=== PATIENT | female | born 1945 ===

== ENCOUNTER 2023-04-22 08:00 | Inpatient (IN) | payer MEDICARE ==
[~2023-04-22] VITALS: Wt 67.6 kg
[~2023-04-22 08:00] MED LIST: ANASTROZOLE1 M1 PO; CALCIUM500 M1 PO; CENTRUM COMPLE1 EACH PO; GABAPENTIN100 M2 PO; LISINOPRIL40 MG PO; METOPROLOL TART50 M1 PO; PROVENTIL HFA6.7 GM INH; SEPTDS PO; TRELEGY ELLIPT1 EACH INH; VITAMIN D350 MCG PO
[2023-04-22 08:05] VITALS: BP 126/65
[2023-04-22 08:37] LABS: BASO % 0.3 % (0.0-1.0); EOS # 0.2 10*3/uL (0.0-0.4); HEMATOCRIT 45.4 % (37.0-47.0); LYMPH % 12.5 % (27.0-41.0); MEAN CORPUSCULAR HGB 30.5 pg (27.0-31.0); MEAN CORPUSCULAR HGB CONC 32.8 g/dl (33.0-37.0); MEAN PLATELET VOLUME 9.8 fl (9.6-12.3); MONO % 12.9 % (3.0-9.0); NEUT # 5.4 10*3/uL (2.3-7.9); NEUT % 71.9 % (47.0-73.0); PLATELET COUNT AUTOMATED 226 10*3/uL (130-400); RED BLOOD COUNT 4.88 10*6/uL (4.10-5.10); RED CELL DISTRI WIDTH 12.9 % (0-14.5); WHITE BLOOD COUNT 7.6 10*3/uL (4.8-10.8)
[2023-04-22 08:47] LABS: ACT PARTIAL THROMBO TIME 33.8 SECONDS (20.0-32.1)
[2023-04-22] MEDS ORDERED: [UNRECOGNIZED DRUG - REMARK] (08:49)
[2023-04-22] MEDS ORDERED: CERTAVITE-ANTI1 EACH PO (08:49)
[2023-04-22] MEDS ORDERED: CALCIUM500 M1 PO (08:49)
[2023-04-22] MEDS ORDERED: PREGABALIN100 MG PO (08:50)
[2023-04-22] MEDS ORDERED: LISINOPRIL40 MG PO (08:50)
[2023-04-22] MEDS ORDERED: PREGABALIN50 MG PO (08:51)
[2023-04-22] MEDS ORDERED: TRELEGY ELLIPT1 EACH INH (08:52)
[2023-04-22] MEDS ORDERED: VITAMIN D350 MC2 PO (08:52)
[2023-04-22] MEDS ORDERED: VENT7GM INH (08:53)
[2023-04-22 09:00] LABS: ALKALINE PHOSPHATASE 109 U/L (46-116); BUN 12 mg/dl (9-23); CHLORIDE 102 mmol/L (98-107); POTASSIUM 4.2 mmol/L (3.4-5.1); SGPT/ALT 20 U/L (5-49); TOTAL PROTEIN 6.9 gm/dL (6.0-8.0)
[2023-04-22 10:15] VITALS: BP 151/89
[2023-04-22 12:03] VITALS: BP 150/84
[2023-04-22 13:40] LABS: BILIRUBIN Negative (Negative); BLOOD Negative (Negative); CLARITY Clear (Clear); COLOR Yellow (Yellow); GLUCOSE Negative (Negative); KETONE Negative (Negative); LEUKO ESTERASE 1+ (Negative); NITRITE Negative (Negative); PH 5.5 (4.5-8.0); SPECIFIC GRAVITY 1.025 (1.001-1.030)
[2023-04-22 13:59] LABS: BACTERIA 1+
[2023-04-22 14:04] VITALS: BP 119/72
[2023-04-22] MEDS ORDERED: ASPIRIN CHILDRE81 MG PO (16:06)
[2023-04-22] MEDS ORDERED: ATORVASTATIN CA40 M1 PO (16:06)
== END 2023-04-22 16:15 | DRG 69 ==
LOC: ED 08:00 → EDHOLD 10:15
PROVIDERS: Emergency Medicine; Student in an Organized Health Care Education/Training Program; ADMIT Internal Medicine; ATTEND Internal Medicine
DX: G45.9 Transient cerebral ischemic attack, unspecified (principal); N30.00 Acute cystitis without hematuria; J44.9 Chronic obstructive pulmonary disease, unspecified; I10 Essential (primary) hypertension; Z66 Do not resuscitate; G62.9 Polyneuropathy, unspecified; M32.9 Systemic lupus erythematosus, unspecified; Z90.13 Acquired absence of bilateral breasts and nipples; Z85.3 Personal history of malignant neoplasm of breast; Z79.82 Long term (current) use of aspirin; Z79.899 Other long term (current) drug therapy; Z51.5 Encounter for palliative care